=== PATIENT | female | born 1975 | race Asian ===

== ENCOUNTER 2017-06-22 23:57 | Emergency (ER) | payer BC ==
[~2017-06-22] VITALS: Ht 165.1 cm; Wt 53.1 kg
[2017-06-23 00:03] VITALS: BP 107/69
[2017-06-23] MEDS ORDERED: diphenhydrAMINE HCL 25 MG CAPSULE ONE (00:17)
--- NOTE | 2017-06-23 00:24 | NUR ---
Patient discharged to home in stable condition. Written and verbal after care instructions given. Patient verbalizes understanding of instruction. VSS ON DISCHARGE. AMBULATED OUT OF ER WITH STEADY GAIT.
[2017-06-23] MEDS ORDERED: diphenhydrAMINE HCL 25 MG CAPSULE PO ONE (00:30)
== END 2017-06-23 00:26 | disposition home or self-care (01) ==
LOC: ER 23:59
DX: R21 Rash and other nonspecific skin eruption (principal)
CPT/HCPCS: 99282; A4606; Q0163; Z7610